=== PATIENT | female | born 2000 | race Caucasian/White ===

== ENCOUNTER 2020-05-03 01:18 | Outpatient (CLI) | payer SELFPAY ==
[2020-05-03 20:51] LABS: SARS-CoV-2 RNA PCR Negative
== END 2020-05-03 01:19 | disposition home or self-care (01) ==
LOC: ANHCOVIDDT 01:18
PROVIDERS: PCP Pediatrics; Visit Provider Surgery Plastic and Reconstructive Surgery
DX: Z01.812 Encounter for preprocedural laboratory examination (principal); Z20.828 Contact with and (suspected) exposure to other viral communicable diseases
CPT/HCPCS: 87635; C9803; U0003

== ENCOUNTER 2020-05-05 10:54 | Day surgery (SDC) | payer OTHER, SELFPAY ==
[2020-04-22 14:17] VITALS: BMI 19.8
[2020-05-05] VITALS (7 sets, daily range): BP systolic 102–119; BP diastolic 70–89; PULSE 77–104; RESP 14–21; TEMP 36.6–36.8; O2SAT 100; BMI 18.8
--- NOTE | 2020-05-05 09:30 | WPDANESEPPF ---
Anes - Initial Pre Proc Eval Procedure: Operation Date: 05/05/20 12:30 Proposed Procedures p Bilateral Augmentation Mammoplasty - Alex Bonds MD Date/Time: 05/05/20 09:30 Surgeon: Alex Bonds MD Pre Op Diagnosis: MICROMASTIA Patient Data Age: 20 Gender: F Height: 5 ft 2 in Weight: 49 kg Allergies Allergy/AdvReac Type Severity Reaction Status Date / Time petrolatum,white Allergy Unknown Swelling Verified 04/22/20 14:07 [From Aquaphor Original] of the Eye Home Medications Medication Instructions Recorded Confirmed Type norethindrone 1 mg-ethinyl 1 tablet PO DAILY 02/24/20 04/22/20 History estradiol 10 mcg (24)-iron 10 mcg(2) tablet carisoprodol 350 mg tablet 350 mg PO TID PRN #21 tablet 04/21/20 04/22/20 Rx docusate sodium 100 mg capsule 100 mg PO DAILY #14 cap 04/21/20 04/22/20 Rx ondansetron HCl 4 mg tablet 4 mg PO Q8H #28 tablet 04/21/20 04/22/20 Rx oxycodone-acetaminophen 5 mg-325 1 tablet PO Q6H PRN #15 tablet 04/21/20 04/22/20 Rx mg tablet Patient hx anesthesia problems: none Family hx anesthesia problems: none PMFSH Surgical History Surgical History History of tonsillectomy Family History Family History Mother Acute Crohn's disease Social History Social History Smoking status: Never smoker Alcohol intake: never Substance use: never Substance use type: does not use Living arrangements: with family Gender identity (if verbalized by the patient): Female Anes - Eval Final PreProcedure Day of Procedure 05/05/20 09:30 Patient weight: normal Heart: regular rate and rhythm Lungs: clear to auscultation Airway: Mallampati scale class II Neurological: alert and oriented Last oral intake: >/= 8 hours ASA classification: I Emergent: no Anesthetic plan: proceed Anesthesia type and monitoring: general LMA and standard monitoring Informed Consent: The patient's anesthetic plan and its attendant risks and benefits were discussed with the patient/family/POA. Questions were solicited and answers provided to the satisfaction of the patient/family/POA.
[2020-05-05] MEDS: LACTATED RINGERS 1,000 ML 30 ML IV CONT ×3 (11:28→13:23)
[2020-05-05] MEDS: SCOPOLAMINE 1.5 MG PATCH TRANSDERM (11:30)
--- NOTE | 2020-05-05 11:37 | WPDHPUPDATE1 ---
History and Physical Update Update Date/Time: 05/05/20 11:37 History and Physical has been reviewed, including an updated exam of the patient. There are NO changes in the patient's condition. Risks, benefits, and alternatives have been discussed and questions answered. Patient agrees to proceed with procedure.
--- NOTE | 2020-05-05 11:47 | PM.PROC ---
Procedure Note - Detailed Date of procedure: 05/05/20 Pre-op diagnosis: MICROMASTIA Post-op diagnosis: same Procedure performed: Bilateral augmentation mammaplasty Description of procedure: She is here today for bilateral breast augmentation. Previously and again today the risks, benefits, alternatives were discussed in extensive detail. I wanted her to be very realistic about the risks involved as well as expectations. We discussed aftercare and what to monitor for. Made sure answered all of her questions to her satisfaction today and consent was obtained. Marked in the preoperative holding area with their verification. The patient was taken to the operating room placed supine on the operating table. Anesthesia was provided by anesthesiology. A surgical time-out was taken. We cleansed the skin and 1% lidocaine and 0.25% Marcaine with epinephrine was used anesthetize as a field block. She was prepped and draped in a standard sterile fashion. Tegaderm nipple Bryan were placed. A 15 blade used to make an incision along the inframammary fold. Dissection was continued at 45 degree angle until the chest wall as identified. I incised the pectoralis major along its inferior border and completely released the inferior border leaving the medial border intact. I created a subpectoral pocket in the appropriate dimensions based on our preoperative planning for the implant. I then copiously irrigated with saline solution and verified a strict hemostasis. Next the use a triple antibiotic and Betadine containing solution to irrigate the pocket. I washed my gloves with the triple antibiotic and Betadine solution. Air was removed from the implant and introduced into the pocket. Using a fill kit we filled to the volumes below. Fill kit was removed and I verified the valve seated well. The implant was introduced into the pocket using the funnel. Having verified positioning of the implant this was closed using 2-0 Vicryl followed by 3-0 Monocryl in a running subcuticular 4-0 Monocryl followed by tissue glue. Fluffs, Casey wrap, and surgical bra were placed. Patient was awoke and taken to PACU without difficulty. All instrument sponge counts were correct at the end of the case. Anesthesia: GLMA Surgeon: Alex Bonds MD Estimated blood loss (mL): 5 Drains: No Packing: No Pathology: none sent Complications: No immediate complications Condition: stable Disposition: PACU Findings: Bilateral dual plane 1 Natrelle saline implants 280cc filled to 295cc Right: REF 68HP-280 SN [id number] Left: REF 68HP-280 SN [id number]
[2020-05-05] MEDS: ceFAZolin SODIUM 2 GM/20 ML SW SYRINGE IV PUSH (12:00)
[2020-05-05] MEDS: LIDO 1%/EPINEPHRINE 1:100,000 20 ML VIAL 30 ML INFILTRATE (12:27)
--- NOTE | 2020-05-05 13:40 | WPDANESPN ---
Anes - Prog Note Post-Op Date/Time: 05/05/20 13:40 Cardiovascular status: normal Respiratory status: normal Airway patency: baseline Mental status: baseline Post-Op hydration status: normal Vital Signs: Last Vital Signs Temp 36.6 C 05/05/20 13:04 Pulse 95 05/05/20 13:30 Resp 14 05/05/20 13:30 BP 102/75 05/05/20 13:30 Pulse Ox 100 05/05/20 13:30 Pain Score (VAS): 0 I/O: Intake & Output 05/04/20 05/05/20 05/05/20 23:59 07:59 15:59 Intake Total 1000 Balance 1000 Post-procedural complaints: none Patient Feedback: Patient satisfied with anesthetic care.
[2020-05-05] MEDS: fentaNYL CITRATE INJ (*CRX) 100 MCG/2 ML VIAL 25 MCG IV PUSH (13:46)
[2020-05-05] MEDS: oxyCODONE HCL (*CRX) 5 MG TAB IR PO (14:49)
== END 2020-05-05 15:00 | disposition home or self-care (01) ==
PROVIDERS: PCP Pediatrics; Visit Provider Surgery Plastic and Reconstructive Surgery
PROC: (CPT 19325; principal; 2020-05-05 12:30)
DX: N64.82 Hypoplasia of breast (principal)
CPT/HCPCS: 19325

== ENCOUNTER 2024-06-02 15:51 | Emergency (ER) | payer BC, SELFPAY ==
[2024-06-02 16:06] VITALS: BP 117/77; PULSE 76; RESP 16; TEMP 36.7; O2SAT 100
--- NOTE | 2024-06-02 16:06 | ED.GENADULT ---
HPI - General Adult General Chief complaint: Skin/Abscess/Foreign Body Stated complaint: Light headed / Bilateral underarm pain Time Seen by Provider: 06/02/24 16:06 Source: patient, RN notes reviewed and old records reviewed Mode of arrival: ambulatory Limitations: no limitations History of Present Illness HPI narrative: 24-year-old female presents to the [facility] with 2 complaints, 3 days ago she has noticed bumps under her bilateral axilla. Applied warm compresses, they turn pimple like and the right side got better, left side developed a swollen lymph node. No redness currently. Tender to touch 1 cm x 3/4 of a cm. Area is skin colored. Pictures of yesterday and day before are very consistent with folliculitis, red pimple like areas at the hair follicles. Patient also states for the last week she has not been feeling well worse in the morning. Reports fatigue, body aches, hot flashes. Last 2 mornings she has felt lightheaded. Patient wanted to make sure she did not have flu were COVID. Denies any symptoms currently Related Data Home Medications Medication Instructions Recorded Confirmed norethindrone 1 mg-ethinyl 1 tablet PO DAILY 02/24/20 06/02/24 estradiol 10 mcg (24)-iron 10 mcg(2) tablet (Lo Loestrin Fe) levothyroxine 50 mcg tablet 50 mcg PO DAILY 06/02/24 06/02/24 Allergies Allergy/AdvReac Type Severity Reaction Status Date / Time stephentum,white AdvReac Intermediate Swelling Verified 06/02/24 16:00 [From Aquaphor Original] of the Eye Review of Systems Review of Systems: All systems reviewed & are unremarkable except as noted in HPI and below Constitutional: Constitutional: Reports as per HPI ENT: Reports system reviewed and no additional complaints, except as documented Cardiovascular: Cardiovascular: Reports no additional cardiovascular complaints, Denies chest pain and Denies dyspnea Respiratory: Respiratory: Reports no additional respiratory complaints, Denies chest congestion, Denies cough and Denies dyspnea Gastrointestinal: Gastrointestinal: Reports no additional gastrointestinal complaints, Denies abdominal pain, Denies nausea and Denies vomiting Musculoskeletal: Musculoskeletal: Reports no additional musculoskeletal complaints Integumentary/Breasts: Skin/Breast: Reports as per HPI [facility] Surgical History Surgical History History of tonsillectomy Family History Family History Mother Acute Crohn's disease Social History Social History Smoking status: Never smoker Alcohol intake: current Alcohol use details: once every 2 weeks Substance use: never Substance use type: does not use Living arrangements: with family Gender identity (if verbalized by the patient): Female Comments At the time of my signature, I reviewed and agree with the nursing past medical, surgical, social, and family history. There is no relevant family history pertinent to the patient complaint. Exam Const: General: cooperative, healthy appearing, comfortable, no acute distress, well developed, alert and well nourished Nutritional Appearance: well nourished Orientation/consciousness: patient oriented x3 Limitations: no limitations HENMT: Head: normal to inspection Ears: hearing grossly normal bilaterally, external ears normal, TM's normal bilaterally, EAC's normal, mastoids normal and no periauricular adenopathy Face/Nose/Sinus: Normal external nose present, normal facial exam and face symmetric Face and sinus: normal facial exam and face symmetric Mouth: Yes Normal oral and palatal mucosa present, Yes lip normal and Yes tongue normal Throat: posterior oropharynx normal, uvula midline and no uvular edema Eyes: General: appearance normal, both eyes and all related structures Alignment and Position: alignment normal Periorbital: periorbital findings normal Neck: Neck: normal visual inspection, full ROM, no lymphadenopathy and no meningeal signs Chest: Chest palpation & inspection: normal inspection of the chest Resp: Effort & Inspection: normal respiratory effort and able to speak in complete sentences Auscultation: clear to auscultation bilaterally, no crackles, no rales, no rhonchi and no wheezes Cardio: Rate: regular rate Skin: General skin exam: normal color and no rashes or lesions noted Rashes: no rashes Wounds: no wounds Other: 1 x 3/4 cm raised skin colored area to the left axilla. No fluctuance, no erythema. Neuro: General: patient oriented x3, gait normal, tone normal, moves all extremities and no meningeal signs Cognition (Neuro): normal cognition Speech: normal speech Gait exam (Neuro): Normal gait present Extrem: General: normal to inspection, full ROM, capillary refill normal and normal gait Psych: Appearance: grossly normal and well kempt Mental Status: mental status grossly normal Speech and movement: Normal speech and movement present and Clear speech present Affect: normal affect Attitude: cooperative Course Course Level of Care: Express Care Visit Vital Signs Vital signs: Vital Signs Temperature 98.1 F 06/02/24 16:06 Pulse Rate 76 06/02/24 16:06 Respiratory Rate 16 06/02/24 16:06 Blood Pressure 117/77 06/02/24 16:06 Pulse Oximetry 100 06/02/24 16:06 Oxygen Delivery Room Air 06/02/24 16:06 Temperature 98.1 F 06/02/24 16:06 Pulse Rate 76 06/02/24 16:06 Respiratory Rate 16 06/02/24 16:06 Blood Pressure 117/77 06/02/24 16:06 Pulse Oximetry 100 06/02/24 16:06 Oxygen Delivery Room Air 06/02/24 16:06 Reviewed Medical Decision Making MDM Narrative Medical decision making narrative: Patient sitting comfortably in exam room. Nontoxic, vitals stable. Patient in no acute distress Patient presents for multiple complaints. Axillas most likely folliculitis, will treat with doxy and clindamycin Lightheadedness, not feeling well. Discussed that we unfortunately do not do lab work. Discussed low blood sugars specially in the morning. We also discussed possible thyroid issues due to her taking thyroid medication. Encouraged to follow up with primary but if symptoms return or get worse in the morning it is highly recommended that she go directly to the emergency room which she verbalized understand Discharge instructions reviewed with patient, as well as provided in writing per nursing staff. The instructions also include specific and strict return/GO TO THE ER as well as f/u information. All questions have been answered, and the patient deny any further questions with discharge and discharge plan. Some parts of this dictation were generated by voice recognition software and may contain typographical and/or grammatical inaccuracies. Medical Records Medical records reviewed: Yes I reviewed the external patient's medical records. Vital Signs Vital Signs: Vital Signs Temperature 98.1 F 06/02/24 16:06 Pulse Rate 76 06/02/24 16:06 Respiratory Rate 16 06/02/24 16:06 Blood Pressure 117/77 06/02/24 16:06 Pulse Oximetry 100 06/02/24 16:06 Oxygen Delivery Room Air 06/02/24 16:06 Temperature 98.1 F 06/02/24 16:06 Pulse Rate 76 06/02/24 16:06 Respiratory Rate 16 06/02/24 16:06 Blood Pressure 117/77 06/02/24 16:06 Pulse Oximetry 100 06/02/24 16:06 Oxygen Delivery Room Air 06/02/24 16:06 Reviewed Lab Data Lab results reviewed: Yes I reviewed the patient's lab results. Labs: Lab Results 06/02/24 Range/Units 16:30 POC Influenza A Ag Negative (Negative) POC Influenza B Ag Negative (Negative) POC SARS CoV-2 Ag Negative (Negative) Reviewed Critical Care Time Critical Care Time Critical Care Time: No Discharge Plan Discharge Clinical Impression: Folliculitis, Light-headed Patient Disposition: Home, Self-Care Condition: Stable Instructions: Antibiotic Form, Folliculitis (ED) Additional Instructions: Wash area with warm soapy water, pat dry. Apply clindamycin topical twice a day Take antibiotic as prescribed Follow-up with primary care provide If your symptoms of dizziness, lightheadedness, flush feeling return or get worse please follow-up with your doctor or go directly to the nearest emergency room. Patient Language: New Zealander Prescriptions: New clindamycin phosphate 1 % solution 1 applic topical BID Qty: 30 0RF doxycycline monohydrate 100 mg tablet 100 mg PO BID Qty: 14 0RF No Action levothyroxine 50 mcg tablet 50 mcg PO DAILY Lo Loestrin Fe 1 mg-10 mcg (24)/10 mcg (2) tablet 1 tablet PO DAILY Follow-up/Referrals: Flash Becerra DO [Primary Care Provider] - 3 Days (express care follow up) Stand Alone Forms: Work/School Release IP Time of Disposition: 16:29
[2024-06-02 16:31] LABS: EDINFLUASCREEN Negative (Negative); EDINFLUBSCREEN Negative (Negative)
[2024-06-02 16:32] LABS: EDCOVIDSCREEN Negative (Negative)
== END 2024-06-02 16:32 | disposition home or self-care (01) ==
PROVIDERS: Emergency Provider Nurse Practitioner; PCP Internal Medicine
DX: L73.9 Follicular disorder, unspecified (principal); R42 Dizziness and giddiness; Z20.822 Contact with and (suspected) exposure to COVID-19; E03.9 Hypothyroidism, unspecified; Z86.16 Personal history of COVID-19
CPT/HCPCS: 87426; 87804; 99213; G0463

== ENCOUNTER 2024-09-25 08:45 | Outpatient (CLI) | payer BC, SELFPAY ==
--- OUTSIDE RECORDS SUMMARY | 2024-09-25 09:04 | XMS_ITS | Clinical Summary ---
Author Organization [facility] Address [address] [place] [phone] Phone Care Team Providers Care Shoe Treer Name Role Phone Provider, None Primary Care Provider Unavailabl e Allergies No known active allergies Medications No known medications Active Problems No known active problems Social History Tobacco Use Types Packs/Day Years Used Date Smoking Tobacco: Never Smokeless Tobacco: Never Comments Unknown Sex and Gender Information Value Date Recorded Sex Assigned at Not on file Legal Sex Female 12:18 PM 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 Gender Identity Not on file Sexual Orientation Not on file Last Filed Vital Signs Vital Sign Reading Time Taken Comments Blood Pressure 104/70 05/19/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 Pulse 99 05/19/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 Temperature 37.2 C (99 F) 05/19/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 Respiratory Rate 20 05/19/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 Oxygen Saturation 98% 05/19/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 Inhaled Oxygen Concentration - - Weight 48.5 kg (107 lb) 05/19/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 Height - - Body Mass Index - - Plan of Treatment Health Maintenance Due Date Last Done Comments Hepatitis C Virus (HCV) Screening 2000 Meningococcal B Immunization (1 of 2 - Patient Seeks Protection) 2016 Pap Smear 2021 Influenza Immunization (#1) 2024 05/31/2017, 0 02/04/2013 SARS-COV-2 Immunization ( season) 2024 03/02/2021, 02/07/2021 Respiratory Syncytial Virus (RSV) Immunization (Adult) (1 - 1-dose 75+ series) 2075 Hepatitis B Immunization Completed 001, 2000, 2000 Pneumococcal Immunization Combined Aged Out 06/09/2001, 2000, 2000, Additional history exists No longer eligible based on patient's age to complete this topic DTaP/Tdap/Td Immunization Discontinued 2010, 11/02/2005, 06/09/2001, Additional history exists TdaP Immunization Completed 11/20/2010 Human Papillomavirus (HPV) Immunization Completed 02/27/2012, 05/15/2011, 03/13/2011 Meningococcal Immunization (ACWY) Completed 07/06/2016, 03/13/2011 Rotavirus Immunization Aged Out No lo nger eligible based on patient's age to complete this topic [place] [address] [place] [address] Care Teams Shoe Treer Relationship Specialty Start Date End Date Provider, None [place] PCP - General 05/19/20
[2024-09-25 13:03] LABS: Alanine Aminotransferase 19 U/L (6-35); Albumin Level 4.5 g/dL (3.5-5.1); Alkaline Phosphatase 65 U/L (38-126); Anion Gap 11 mmol/L (4-12); Aspartate Amino Transferase 40 U/L (14-36); Bilirubin,Total 0.6 mg/dL (0.2-1.3); Blood Urea Nitrogen 13 mg/dL (7-17); Calcium 9.5 mg/dL (8.4-10.2); Carbon Dioxide 24 mmol/L (22-30); Chloride 105 mmol/L (98-107); Estimated Glomerular Filt Rate > 60; Glucose 78 mg/dL (65-110); Potassium 4.5 mmol/L (3.4-5.0); Sodium 140 mmol/L (137-145)
[2024-09-25 13:31] LABS: Free T4 Free Thyroxine 1.67 ng/dL (0.78-2.19)
== END 2024-09-25 08:46 | disposition home or self-care (01) ==
LOC: ANHGOSHLAB 08:46
PROVIDERS: PCP Internal Medicine; Visit Provider Nurse Practitioner
DX: F41.9 Anxiety disorder, unspecified (principal); E03.9 Hypothyroidism, unspecified
CPT/HCPCS: 36415; 80053; 84439; 84443; 84481